=== PATIENT | female | born 1965 | race American Indian/Alaskan Native ===

== ENCOUNTER 2016-09-06 10:44 | Emergency (ER) | payer MEDICARE ==
[2016-09-06] MEDS ORDERED: NORCO 5/325 PO ONE (11:12)
--- NOTE | 2016-09-06 11:14 | Emergency Department Report ---
HPI - General Chief Complaint: Extremity Injury, Lower Time Seen by Provider: 09/06/16 11:00 - HPI HPI: This is a 50-year-old Afro-[place] female who presents to the emergency department by EMS from work with complaint of severe left knee pain. The patient says that she has a history of arthritis including arthritis in that left knee. She has had this kind of pain before but never this intense. She hit the knee on a table last night but did not have any significant discomfort today. However the patient began having some pain after standing on the knee during work and at one point sat down and felt like she was unable to get back up because the movement and bearing weight was 2 weeks cruciated. She did not take anything for symptoms and was not given anything prior to presentation. She has a past medical history of hypertension, arthritis, bipolar disorder, CHF. She denies any skin color change or swelling. No recent traveling, immobility, recent surgery. She does not have a primary care doctor. ED Past Medical Hx - Past Medical History Previous Medical History?: Yes Hx Hypertension: Yes Hx Congestive Heart Failure: Yes Hx Psychiatric Treatment: Yes (bipolar) - Surgical History Past Surgical History?: Yes Additional Surgical History: tubal ligation and hyster - Social History Smoking Status: Never Smoker Substance Use Type: Prescribed - Medications Home Medications: Home Medications Medication Instructions Recorded Confirmed Last Taken Type Ibuprofen [Motrin] 800 mg PO TID PRN #20 tablet 08/28/13 Unknown Rx Sulfamethoxazole/Trimethoprim 1 each PO BID #14 tablet 08/28/13 Unknown Rx [Bactrim Ds] HYDROcodone/APAP 5-325 [[place] 1 each PO Q6HR PRN #10 tablet 09/06/16 Unknown Rx 5/325] ED Review of Systems ROS: Stated complaint: LEFT LEG PAIN Other details as noted in HPI Comment: All other systems reviewed and negative Constitutional: denies: chills, fever Eyes: denies: eye pain, eye discharge, vision change ENT: denies: ear pain, throat pain Respiratory: denies: cough, shortness of breath, wheezing Cardiovascular: denies: chest pain, palpitations Gastrointestinal: denies: abdominal pain, nausea, diarrhea Genitourinary: denies: urgency, dysuria, discharge Musculoskeletal: arthralgia. denies: joint swelling Skin: denies: rash, lesions Neurological: denies: headache, weakness, paresthesias Physical Exam - Physical Exam Vital Signs: Vital Signs 09/06/16 11:05 Temperature 98.2 F Pulse Rate 66 Respiratory 16 Rate Blood Pressure 117/60 O2 Sat by Pulse 99 Oximetry Physical Exam: GENERAL: The patient is well-developed well-nourished. HEENT: Normocephalic. Atraumatic. Extraocular motions are intact. Patient has moist mucous membranes. Pupils equal reactive to light bilaterally. NECK: Supple. Trachea is midline. CHEST/LUNGS: Clear to auscultation. There is no respiratory distress noted. HEART/CARDIOVASCULAR: Regular. There is no tachycardia. There is no gallop rub or murmur. ABDOMEN: Abdomen is soft, nontender. Patient has normal bowel sounds. Morbidly obese habitus. SKIN: Warm and dry. NEURO: The patient is awake, alert, and oriented. The patient is cooperative. The patient has no focal neurologic deficits. The patient has normal speech. MUSCULOSKELETAL: There is some mild tenderness to palpation to the anterior portion of the left knee but no obvious deformity. Negative anterior and posterior drawer test. No laxity of valgus or varus stress. There is no limitation range of motion. There is no evidence of acute injury. ED Course Vital Signs 09/06/16 11:05 Temperature 98.2 F Pulse Rate 66 Respiratory 16 Rate Blood Pressure 117/60 O2 Sat by Pulse 99 Oximetry ED Medical Decision Making - Radiology Data Radiology results: report reviewed, image reviewed interpreted by me: X-ray of the left knee does not show any fracture or dislocation. There is no acute process seen. Venous Doppler of the left lower extremity does not show any signs of DVT. - Medical Decision Making 50-year-old female presents to the emergency department with severe left knee pain since work today. The knee does not appear unstable and physical exam. There is no deformities. X-ray of the knee does not show any fracture, dislocation or any acute process. Left lower extremity venous Doppler negative for DVT. Patient was given a single dose of pain medication and she is feeling much better and able to bear weight and ambulate on the affected left lower leg. She will follow-up with her primary care doctor in the next few days and will return to the ER with any worsening or symptoms or any acute distress. - Differential Diagnosis knee sprain, fracture, contusion, dislocation Critical Care Time: No Critical care attestation.: If time is entered above; I have spent that time in minutes in the direct care of this critically ill patient, excluding procedure time. ED Disposition Clinical Impression: Left knee pain Qualifiers: Chronicity: acute Qualified Code(s): M25.562 - Pain in left knee Arthralgia Qualifiers: Joint pain location: knee Laterality: left Qualified Code(s): M25.562 - Pain in left knee Disposition: DISCHARGED TO HOME OR SELFCARE Is pt being admited?: No Condition: Stable Instructions: Arthralgia (ED) Additional Instructions: These follow-up with your primary care doctor in the next few days. I have given you a referral for a local orthopedist, Dr. Ruvalcaba, in case she wanted to follow-up regarding your knee pain. Return to the emergency department with any worsening of your symptoms or any acute distress. You've been prescribed a medication that is sedating. Therefore this medication cannot be mixed with alcohol, or taken prior to driving, working, or being responsible for children. Prescriptions: HYDROcodone/APAP 5-325 [[place] 5/325] 1 each PO Q6HR PRN #10 tablet PRN Reason: Pain Referrals: PRIMARY CAREMD [Primary Care Provider] - 3-5 Days YESSI RUVALCABA MD [Staff Physician] - 3-5 Days Forms: Work/School Release Form(ED)
--- NOTE | 2016-09-06 11:29 | XRay Report ---
LEFT KNEE, 3 views: History: Left knee pain. Normal bone mineralization. Moderate to severe osteoarthritic changes are identified in the medial compartment and to a lesser extent the lateral compartment and patellofemoral space. There is no evidence for fracture, bone lesion or osteochondral defect. Small joint effusion is suspected on the lateral image. IMPRESSION: Osteoarthritic changes. Small joint effusion.
[2016-09-06 13:12] VITALS: BP 108/56
--- NOTE | 2016-09-07 08:11 | Vascular Lab Report ---
Left Lower Extremity Venous Duplex Study: Reason for Exam: Left leg pain. Comments on the Right: A limited duplex study was done of the proximal veins of the right lower extremity. All veins visualized are freely compressible without evidence of internal echogenicity. Flow is spontaneous and phasic throughout. No evidence of acute or chronic thrombus is seen in any of the vessels visualized. Comments on the Left: All veins visualized are freely compressible without evidence of internal echogenicity. Flow is spontaneous and phasic throughout. No evidence of acute or chronic thrombus is seen in any of the vessels visualized. Echolucent density around the knee may represent an effusion. Impression: No evidence of acute or chronic deep venous thrombosis in the left lower extremity.
== END 2016-09-06 13:13 | disposition home or self-care (01) ==
LOC: ED 10:44
DX: M25.562 Pain in left knee (principal); I10 Essential (primary) hypertension; I50.9 Heart failure, unspecified